=== PATIENT | male | born 1985 | race African-American/Black ===

== ENCOUNTER → 2023-06-19 | Outpatient (CLI) | payer OTHER ==
[~2023-06-19] MED LIST: Furosemide 40 MG/4 ML VIAL IV SCH; PERCOCET 325 MG1 TA2 PO; ROXICODONE 55 MG/TAB PO
== END ==
LOC: COL.RAD 11:30
DX: N13.0 Hydronephrosis with ureteropelvic junction obstruction (principal)
CPT/HCPCS: A9562; J1940

== ENCOUNTER 2023-09-28 11:43 | Day surgery (SDC) | payer OTHER ==
[~2023-09-28] VITALS: Ht 185.4 cm; Wt 106.1 kg
[~2023-09-28 11:43] MED LIST changes: -Furosemide 40 MG/4 ML VIAL IV SCH
[2023-09-28] MEDS ORDERED: LR 1,000 ML IV ONE (12:30)
[2023-09-28 13:11] VITALS: BP 146/76; PULSE 56; TEMP 97.9
[2023-09-28] MEDS ORDERED: LR 1,000 ML IV SCH (14:00)
[2023-09-28] MEDS ORDERED: HYDROmorphone 1 MG/1 ML SYRINGE [PACU/SDC ONLY] IV PRN (14:00)
[2023-09-28] MEDS ORDERED: Ondansetron 4 MG/2 ML VIAL IV PRN (14:00)
[2023-09-28] MEDS ORDERED: fentaNYL 50 MCG/ML 1 ML SYRINGE/VIAL [PACU/SDC ONLY] IV PRN (14:00)
[2023-09-28] MEDS ORDERED: Lidocaine PF 2% (20 MG/ML) 5 ML VIAL ONE (14:15)
[2023-09-28] MEDS ORDERED: Glycopyrrolate 0.2 MG/ML 1 ML VIAL ONE (14:15)
[2023-09-28] MEDS ORDERED: Ondansetron 4 MG/2 ML VIAL ONE (14:15)
[2023-09-28] MEDS ORDERED: Lidocaine 2% (20 MG/ML) 20 ML UROJET UR ONE (14:30)
[2023-09-28] MEDS ORDERED: Iohexol 350 - 100 ML VIAL URETER-R ONE (14:30)
[2023-09-28] MEDS ORDERED: PERCOCET 325 MG1 TA2 PO (14:37)
[2023-09-28] MEDS ORDERED: oxyCODONE/Acetaminophen 5-325 MG TAB PO PRN (14:45)
[2023-09-28] MEDS ORDERED: Hyoscyamine 0.125 MG Sublingual TAB SL PRN (14:45)
[2023-09-28 15:15] VITALS: BP 147/93; PULSE 58; TEMP 97.4
[2023-09-28 15:30] VITALS: BP 138/84; PULSE 57
[2023-09-28 15:45] VITALS: BP 148/81; PULSE 53
[2023-09-28 16:00] VITALS: BP 141/89; PULSE 56
--- NOTE | 2023-09-28 16:50 | NUR ---
1515-PT TO BAY 6 PER CART FROM PACU. REPORT RECEIVED. VS OBTAINED. CALL LIGHT WITHIN REACH. PT TOLERATING WATER. PT DENIES ANY NEEDS. PT UP TO RESTROOM AND VOIDED WITHOUT DIFFICULTY. PT WANTING TO REST. 1530-PT UP TO RESTROOM AND VOIDED. PT AMBULATED WITHOUT DIFFICULTY. 1535-PT TOLERATING SODA AND ICE CREAM 1545-PT TOLERATING CHEESE AND CRACKERS. 1600-PT UP TO RESTROOM AND VOIDED. PT AMBULATED WITHOUT DIFFICULTY. 1615-IV DC'D AT THIS TIME. PT WAITING FOR HIS TO RETURN WITH CLOTHES. 1635-PT ABLE TO DRESS SELF WITHOUT ASSISTANCE. 1645-DISCHARGE EDUCATION COMPLETED WITH PT AND HIS . VERBALIZED UNDERSTANDING OF HOME AND FOLLOW UP CARE. ALL QUESTIONS ANSWERED. DISCHARGE PAPERWORK GIVEN TO PT. 1650-PT OFF UNIT WITH FAMILY. PT DISCHARGED HOME WITH HIS FAMILY PER PERSONAL VEHICLE.
[2023-09-28 17:39] VITALS: BP 145/79; PULSE 59; TEMP 97.3
== END 2023-09-28 16:50 | disposition home or self-care (01) ==
LOC: SDCO 11:43
DX: N13.0 Hydronephrosis with ureteropelvic junction obstruction (principal)
CPT/HCPCS: C1769; C2617; J2405; J2704; J7120; Q9967

== ENCOUNTER → 2024-01-03 | Outpatient (CLI) | payer OTHER ==
[~2024-01-03] MED LIST changes: +Furosemide 40 MG/4 ML VIAL IV SCH
== END ==
LOC: COL.RAD 11:30
DX: N13.0 Hydronephrosis with ureteropelvic junction obstruction (principal)
CPT/HCPCS: A9562; J1940